=== PATIENT | female | born 1965 | race Caucasian/White ===

== ENCOUNTER 2022-07-19 21:55 | Emergency (ER) | payer BC ==
[2022-07-19] MEDS ORDERED: Sodium Chloride 0.9% 10 ML Syringe FLUSH PRN (22:03)
[2022-07-19] MEDS ORDERED: Lactated Ringers 1,000 ML IV ONE (22:05)
[2022-07-19 22:24] LABS: BASOPHILS ABSOLUTE AUTO 0.1 x10^3/uL (0.0-0.2); BASOPHILS PERCENT AUTO 0.6 % (0.2-1.2); EOSINOPHILS ABSOLUTE AUTO 0.3 x10^3/uL (0.0-0.5); EOSINOPHILS PERCENT AUTO 2.5 % (0.0-4.0); HEMATOCRIT 38.1 % (33.0-47.0); HEMOGLOBIN 13.4 g/dL (12.0-16.0); IMMATURE GRAN ABSOLUTE AUTO 0.03 x10^3/uL (0.00-0.07); LYMPHOCYTES PERCENT AUTO 18.3 % (25.0-50.0); MEAN CORPUSCULAR HGB CONC 35.2 g/dL (32.0-36.0); MEAN CORPUSCULAR VOLUME 88.2 fL (78.0-93.0); MONOCYTES ABSOLUTE AUTO 1.2 x10^3/uL (0.0-0.8); MONOCYTES PERCENT AUTO 11.4 % (2.0-11.0); NEUTROPHILS ABSOLUTE AUTO 7.1 x10^3/uL (1.8-7.7); NEUTROPHILS PERCENT AUTO 66.9 % (50.0-80.0); PLATELET COUNT,PLT 275 x10^3/uL (130-400); RED BLOOD CELL COUNT 4.32 x10^6/uL (4.00-5.50); WHITE BLOOD CELL COUNT,WBC 10.7 x10^3/uL (4.0-10.0)
[2022-07-19 22:43] LABS: INR 0.9 (2.0-3.5); PROTHROMBIN TIME 9.4 SEC (9.5-12.2); PTT,PARTIAL THROMBOPLSTIN TIME 20.3 SEC (23.6-33.6)
[2022-07-19 22:45] LABS: LACTIC ACID 1.4 mmol/L (0.4-2.0)
[2022-07-19 22:51] LABS: A/G RATIO 1.19; ALANINE AMINOTRANSFERASE,ALT 50 U/L (14-59); ALBUMIN 3.8 g/dL (3.4-5.0); ALKALINE PHOSPHATASE 92 U/L (46-116); ASPARTATE AMNIOTRANSFERASE,AST 27 U/L (15-37); BILIRUBIN TOTAL 0.4 mg/dL (0.2-1.0); BLOOD UREA NITROGEN,BUN 18 mg/dL (7-18); CALCIUM 9.5 mg/dL (8.5-10.1); CARBON DIOXIDE,CO2 23 mmol/L (21-32); CHLORIDE,CL 101 mmol/L (98-107); CREATININE 0.7 mg/dL (0.55-1.02); GLUCOSE RANDOM 123 mg/dL (70-99); PHOSPHORUS 4.4 mg/dL (2.6-4.7); POTASSIUM,K 3.8 mmol/L (3.5-5.1); PRO B-TYPE NATRIUR PEPT,BNPPRO 57 pg/mL (<=125); SODIUM,NA 137 mmol/L (136-145)
[2022-07-19 22:53] LABS: ANION GAP 16.8 mmol/L (5-15); C-REACTIVE PROTEIN < 0.2 mg/dL (<=0.9); ESTIMATED GFR 100 mL/min (>=60)
[2022-07-19 23:01] LABS: CORONAVIRUS COVID-19 NAA NEGATIVE (NEGATIVE); INFLUENZA A NAA NEGATIVE (NEGATIVE); INFLUENZA B NAA NEGATIVE (NEGATIVE)
[2022-07-19 23:02] LABS: RESPIRATORY SYNCYTIAL VIR NAA NEGATIVE (NEGATIVE)
[2022-07-19] MEDS ORDERED: cefTRIAXone 2 GM Vial IVPUSH ONE (23:24)
[2022-07-19] MEDS ORDERED: Sodium Chloride 0.9% 500 ML IV ONE (23:26)
[2022-07-19] MEDS ORDERED: methylPREDNISolone Sodium Succinate 125 MG/2 ML SDV IV ONE (23:27)
[2022-07-19] MEDS ORDERED: Take Home: Acetaminophen/Codeine 300 MG/30 MG, 5 Tab Pack PO ONE (23:28)
[2022-07-19] MEDS ORDERED: Take Home: Doxycycline 100 MG Cap, 4 Cap Pack PO ONE (23:28)
[2022-07-19] MEDS ORDERED: Sodium Chloride 0.9% 1,000 ML IV SCH (23:30)
== END 2022-07-20 00:10 | disposition home or self-care (01) ==
LOC: VM.ED 21:55
DX: J40 Bronchitis, not specified as acute or chronic (principal); I10 Essential (primary) hypertension; Z86.16 Personal history of COVID-19; Z20.822 Contact with and (suspected) exposure to COVID-19
CPT/HCPCS: 0241U; 36415; 71045; 80053; 83605; 83735; 83880; 84100; 84145; 84484; 85025; 85379; 85610; 85730; 86140; 87040; 93005; 96374; 96375; 99285-25; A9270-GY; J0696; J2930; J7030; J7120

== ENCOUNTER 2025-02-08 08:59 | Day surgery (SDC) | payer BC ==
[2025-02-08] MEDS: Lactated Ringers 1,000 ML IV SCH (09:18)
[2025-02-08] MEDS ORDERED: fentaNYL 100 MCG/2 ML SDV ONE (09:59)
[2025-02-08] MEDS ORDERED: Propofol 200 MG/20 ML SDV ONE (09:59)
[2025-02-08] MEDS: Citric Acid/Sodium Citrate Solution 30 ML Cup PO ONE (10:16)
== END 2025-02-08 11:42 | disposition home or self-care (01) ==
LOC: VM.SDS 08:59
PROVIDERS: ATTEND Surgery
DX: R10.13 Epigastric pain (principal); I10 Essential (primary) hypertension; E78.2 Mixed hyperlipidemia; E66.812 Obesity, class 2; E83.42 Hypomagnesemia; E87.6 Hypokalemia; Z68.28 Body mass index [BMI] 28.0-28.9, adult; Z79.899 Other long term (current) drug therapy
CPT/HCPCS: 00731; A9270-GY; J2704; J3010; J7120